=== PATIENT | male | born 2000 | race African-American/Black ===

== ENCOUNTER 2025-02-05 07:43 | Observation (INO) | payer OTHER, SELFPAY ==
[2025-02-05] MEDS ORDERED: HYDROMORPHONE HCL 1 MG/ML INJ ONE (08:34)
[2025-02-05] MEDS ORDERED: ONDANSETRON 4 MG/2 ML VIAL ONE ×2 (08:34→09:14)
--- NOTE | 2025-02-05 08:36 | RAD REPORT ---
EXAMINATION: ULTRASOUND DUPLEX OF SCROTUM AND TESTICLES CLINICAL INDICATION: Testicular pain TECHNIQUE: Duplex scan of the scrotal contents was performed including real-time color and spectral D oppler ultrasonography with arterial inflow and venous outflow. COMPARISON: No prior exam. FINDINGS: Right testicle measures 4 x 2.5 x 2.3 cm with a normal echotexture. Markedly diminished blood flow wi thin the right testicle. Left testicle measures 3.4 x 1.5 x 2.5 cm with a normal echotexture. Normal blood flow. Right epididymis normal in size and echotexture. Normal blood flow Left epididymis normal in size and echotexture. Normal blood flow IMPRESSION: Right testicular torsion Dr Jerome of emergency room notified at 833 AM February 05, 2025
--- NOTE | 2025-02-05 08:42 | ER ---
Nurse's Notes [facility] Name: Zuri Swain Age: 24 yrs Sex: Male : 2000 Arrival Date: 02/05/2025 Time: 07:43 Bed 6 Private MD: Diagnosis: Testicular torsion, right Presentation: 02/05 07:47 Chief complaint: EMS states: "toned out for right testicle pain that woke him up at mb9 0630. 20 g left AC and 100 mcg Fentanyl given IV.". Coronavirus screen: Vaccine status: Patient reports being unvaccinated. Ebola Screen: No symptoms or risks identified at this time. Initial Sepsis Screen: Does the patient meet any 2 criteria? No. Patient's initial sepsis screen is negative. Does the patient have a suspected source of infection? No. Patient's initial sepsis screen is negative. Risk Assessment: Do you want to hurt yourself or someone else? Patient reports no desire to harm self or others. Onset of symptoms was February 05, 2025. 07:47 Acuity: NEO 2 mb9 07:47 Method Of Arrival: EMS: [facility] mb9 Triage Assessment: 07:49 General: Appears uncomfortable, Behavior is cooperative. Pain: Complains of pain in mb9 pelvis. EENT: No signs and/or symptoms were reported regarding the EENT system. Neuro: Arita Agitation-Sedation Scale (RASS): 0 - Alert and Calm Level of Consciousness is awake, alert, obeys commands, Oriented to person, place, time, situation, Appropriate for age. Cardiovascular: Patient's skin is warm and dry. Respiratory: Airway is patent Respiratory effort is even, unlabored, Respiratory pattern is regular, symmetrical. GI: No signs and/or symptoms were reported involving the gastrointestinal system. : No signs and/or symptoms were reported regarding the genitourinary system. Derm: Skin is pink, warm \\T\\ dry. Musculoskeletal: Range of motion: intact in all extremities. Historical: - Allergies: 07:49 No Known Allergies; mb9 - Home Meds: 07:49 None [Active]; mb9 - PMHx: 07:49 Headaches; mb9 - PSHx: 07:49 None; mb9 - Immunization history:: Adult Immunizations up to date. - Infectious Disease History:: Denies. - Social history:: Smoking status: Patient denies any tobacco usage or history of. - Family history:: not pertinent. - Hospitalizations: : No recent hospitalization is reported. Screenin:51 [facility] ED Fall Risk Assessment (Adult) History of falling in the last 3 months, mb9 including since admission No falls in past 3 months (0 pts) Confusion or Disorientation No (0 pts) Intoxicated or Sedated No (0 pts) Impaired Gait No (0 pts) Mobility Assist Device Used No (0 pt) Altered Elimination No (0 pt) Score/Fall Risk Level 0 - 2 = Low Risk Oriented to surroundings, Maintained a safe environment, Educated pt \\T\\ family on fall prevention, incl call for assistance when getting out of bed. Abuse screen: Denies threats or abuse. Nutritional screening: No deficits noted. Tuberculosis screening: No symptoms or risk factors identified. Assessment: 07:50 Reassessment: see triage assessment. mb9 08:51 Reassessment: No changes from previously documented assessment. Patient and/or family mb9 updated on plan of care and expected duration. Pain level reassessed. Patient is alert, oriented x 3, equal unlabored respirations, skin warm/dry/pink. Vital Signs: 07:47 BP 148 / 96; Pulse 78; Resp 16; Temp 98; Pulse Ox 100% ; Weight 58.97 kg; Height 5 ft. mb9 11 in. ; Pain 10/10; 08:39 BP 131 / 91; Pulse 55; Resp 16; Pulse Ox 100% on R/A; mb9 08:51 BP 124 / 68; Pulse 74; Resp 16; Pulse Ox 99% on 2 lpm NC; mb9 07:47 Body Mass Index 18.13 (58.97 kg, 180.34 cm) mb9 07:47 Pain Scale: Adult mb9 ED Course: 07:45 Patient arrived in ED. bd 07:45 Finesse Jerome MD is Attending Physician. rn 07:47 Sonya Brunner RN is Primary Nurse. mb9 07:47 Arm band placed on. mb9 07:49 Triage completed. mb9 07:51 Bed in low position. Call light in reach. Side rails up X 1. Provided Education on: mb9 press call light if needing anything. Client placed on continuous cardiac and pulse oximetry monitoring. NIBP monitoring applied. 07:51 Maintain EMS IV. Dressing intact. Good blood return noted. Site clean \\T\\ dry. Gauge \\T\\ mb 9 site: 20 g left AC. 08:25 US Scrotum Testicles In Process Unspecified. EDMS 08:41 Darek Kenyon is Hospitalizing Provider. rn 08:52 No provider procedures requiring assistance completed. Patient admitted, IV remains in mb9 place. Administered Medications: 08:32 Drug: Ondansetron IVP 4 mg IVP once; over 2 minutes Route: IVP; Site: left antecubital; mb9 08:52 Follow up: Response: No adverse reaction mb9 08:39 Drug: HYDROmorphone IVP 1 mg IVP once Route: IVP; Site: left antecubital; mb9 08:52 Follow up: Response: No adverse reaction mb9 Medication: 07:51 VIS not applicable for this client. mb9 Outcome: 08:42 Decision to Hospitalize by Provider. rn 08:52 Admitted to OR accompanied by nurse, via stretcher, Report called to LETA Licona9 08:52 Condition: stable 08:52 Instructed on the need for admit, 08:52 Patient left the ED. mb9 Signatures: Dispatcher [employer] EDMS Azul Lucero Roman, MD MD rn Wilkerson, Mary Beth, RN RN mb9
--- NOTE | 2025-02-05 08:43 | EDPHYS ---
Physician Documentation [facility] Name: Zuri Swain Age: 24 yrs Sex: Male : 2000 Arrival Date: 02/05/2025 Time: 07:43 Bed 6 Private MD: ED Physician Finesse Jerome HPI: 02/05 08:38 This 24 yrs old Black Male presents to ER via EMS with complaints of Testicular Pain. rn 08:38 The patient presents with scrotal pain. Onset: The symptoms/episode began/occurred this rn morning, at 06:30. Patient reports sudden onset right testicular pain that started at 0 630 this morning. No trauma. No fever or chills.. Historical: - Allergies: 07:49 No Known Allergies; mb9 - Home Meds: 07:49 None [Active]; mb9 - PMHx: 07:49 Headaches; mb9 - PSHx: 07:49 None; mb9 - Immunization history:: Adult Immunizations up to date. - Infectious Disease History:: Denies. - Social history:: Smoking status: Patient denies any tobacco usage or history of. - Family history:: not pertinent. - Hospitalizations: : No recent hospitalization is reported. ROS: 08:38 Constitutional: Negative for fever, chills, and weight loss, Abdomen/GI: Positive for rn radiated pain from scrotum and nausea : Positive for right testicular pain Exam: 08:38 Constitutional: This is a well developed, well nourished patient who is awake, alert, rn Appears uncomfortable Abdomen/GI: Soft, nontender, no masses, no inguinal masses Male : Positive for right testicular swelling and tenderness. No discoloration noted Vital Signs: 07:47 BP 148 / 96; Pulse 78; Resp 16; Temp 98; Pulse Ox 100% ; Weight 58.97 kg; Height 5 ft. mb9 11 in. ; Pain 10/10; 08:39 BP 131 / 91; Pulse 55; Resp 16; Pulse Ox 100% on R/A; mb9 08:51 BP 124 / 68; Pulse 74; Resp 16; Pulse Ox 99% on 2 lpm NC; mb9 07:47 Body Mass Index 18.13 (58.97 kg, 180.34 cm) mb9 07:47 Pain Scale: Adult mb9 MDM: 07:45 Medical Screening Exam initiated rn 08:35 ED course: Discussed case with Dr. Tellez, notified of testicular torsion, will come rn and see patient.. 08:38 Differential diagnosis: nonspecific abdominal pain, Epididymitis, testicular torsion, rn orchitis. Data reviewed: vital signs, nurses notes, radiologic studies, ultrasound, and as a result, I will admit patient. Consideration of Admission/Observation Patient was admitted/placed on observation. Escalation of care including admission/observation considered. Counseling: I had a detailed discussion with the patient and/or guardian regarding the historical points, exam findings, and any diagnostic results supporting the discharge/admit diagnosis, radiology results, the need for further work-up and treatment in the hospital. 08:45 ED course: Patient still writhing in pain. Fentanyl was administered by EMS with rn minimal improvement. 1 mg Dilaudid ordered for pain control to bridge patient to surgery.. 02/05 08:33 Order name: CBC with Diff rn 02/05 08:33 Order name: Basic Metabolic Panel rn 02/05 08:33 Order name: Protime (+inr) rn 02/05 08:33 Order name: Ptt, Activated rn 02/05 07:45 Order name: US Scrotum Testicles; Complete Time: 08:37 rn 02/05 08:33 Order name: IV Start; Complete Time: 08:39 rn Administered Medications: 08:32 Drug: Ondansetron IVP 4 mg IVP once; over 2 minutes Route: IVP; Site: left antecubital; mb9 08:52 Follow up: Response: No adverse reaction mb9 08:39 Drug: HYDROmorphone IVP 1 mg IVP once Route: IVP; Site: left antecubital; mb9 08:52 Follow up: Response: No adverse reaction mb9 Disposition Summary: 02/05/25 08:42 Hospitalization Ordered Notes: Hospitalization Status: Observation rn Provider: Darek Kenyon [facility]n [facility]n Condition: Stable rn Problem: new rn Symptoms: have improved rn Bed/Room Type: Standard rn Room Assignment: rn Diagnosis - Testicular torsion, right rn Forms: - Medication Reconciliation Form rn - SBAR form rn - Leadership Thank You Letter sourcing internship time excluding procedures: 08:38 Critical care time: Bedside Care: 25 minutes, Consultation: 10 minutes. Total time: 35 rn minutes Signatures: Dispatcher [employer] EDMS Finesse Jerome MD MD rn Wilkerson, LETA Camarena RN9 Corrections: (The following items were deleted from the chart) 07:46 07:46 Scrotum Testicles+US.RAD.BRZ ordered. EDMS EDMS 08:34 08:33 CBC+H.LAB.BRZ ordered. EDMS EDMS 08:34 08:33 BASIC METABOLIC PANEL+C.LAB.BRZ ordered. EDMS EDMS 08:34 08:33 PROTIME (+INR)+COAG.LAB.BRZ ordered. EDMS EDMS 08:34 08:33 PTT, ACTIVATED+COAG.LAB.BRZ ordered. EDMS EDMS
[2025-02-05 08:45] LABS: Absolute Lymphocytes (CBC) 1.7 K/uL (0.7-4.9); Absolute Monocytes 0.7 K/uL (0.1-1.3); Basophils % 0.3 % (0-1.3); Eosinophils % 0.4 % (0-4.4); Hematocrit 38.8 % (39.6-49.0); Hemoglobin 13.4 g/dL (13.6-17.9); Lymphocytes % 14.8 % (15.3-44.8); MCH 30.3 pg (27.0-35.0); MCHC 34.4 g/dL (32.0-36.0); MCV 88.1 fL (80-100); MPV 8.5 fL (7.6-11.3); Monocytes % 6.2 % (3.3-12.3); Neutrophils % 78.3 % (41.7-73.7); Platelets 172 thou/uL (152-406); RBC Red Blood Cell Count 4.41 M/uL (4.33-5.43); Red Cell Distribution Width 13.7 % (12.1-15.2)
[2025-02-05 08:53] LABS: PT Prothrombin Time 11.9 SECONDS (10-13.0); PTT, Activated Partial Thromb 26.8 SECONDS (27.2-37.4); Protime INR 1.05
[2025-02-05] MEDS ORDERED: Ringers Lactate 1,000 ML IV ONE (08:59)
[2025-02-05 09:07] LABS: Anion Gap 12.8 mEq/L (5.0-15.0); Potassium 2.8 mEq/L (3.5-5.1)
[2025-02-05] MEDS ORDERED: SUCCINYLCHOLINE 20 MG/ML (10 ML) IV ONE (09:10)
[2025-02-05] MEDS: FAMOTIDINE 20 MG/2 ML VIAL IV ONE (09:12)
[2025-02-05] MEDS ORDERED: KETOROLAC 30 MG/ML INJ ONE (09:14)
[2025-02-05] MEDS ORDERED: LIDOCAINE 2% MPF 5 ML VIAL ONE (09:14)
[2025-02-05] MEDS ORDERED: dexAMETHasone 10 MG/ML VIAL ONE (09:14)
[2025-02-05] MEDS ORDERED: MIDAZOLAM HCL 2 MG/2 ML INJ ONE (09:15)
[2025-02-05] MEDS ORDERED: ROCURONIUM 50 MG/5 ML VIAL IV ONE (09:15)
[2025-02-05] MEDS ORDERED: propofoL 200 MG/20 ML VIAL IV ONE (09:15)
[2025-02-05] MEDS ORDERED: FENTANYL CITR 100 MCG/2 ML ONE (09:15)
--- NOTE | 2025-02-05 09:18 | P.CNS ---
Date of Consult: 02/05/25 Reason for Consult: Testicular torsion Requesting Physician: Finesse Jerome Chief Complaint: Right testicular pain History of Present Illness: 24-year-old gentleman presented via EMS this morning to the emergency department having been awakened at around 6 this morning with right testicular pain. The pain was severe and caused some lower abdominal pain but no associated nausea vomiting, fever or chills. No associated trauma or other event was present. They called the ambulance and he was transported to the emergency department at around 630 this morning. The emergency department completed an ultrasound at around 808 this morning, and consultation was requested of me via phone call at 8:34 AM. I notified the OR immediately after the phone call at around 8:36 AM. Patient was seen in the emergency department at around 8:45 AM having just been administered a dose of the Dilaudid. Past medical and surgical history: None as above No known drug allergies Family history: No urologic malignancy Social history: Smokes marijuana regularly every other day Examination: Well-appearing and in no acute distress Alert, awake, oriented x 3 No dyspnea or sign of respiratory distress Abdomen soft, nontender, nondistended Phallus circumcised without lesion. Right testis elevated in the right hemiscrotum and tender to mild palpation despite patient having just been administered 1 mg Dilaudid IV. Left testis otherwise palpably normal. Scrotum normal. No lower extremity edema or tenderness lying in a stretcher with legs apart to avoid scrotal contact. Scrotal ultrasound completed: FINDINGS: Right testicle measures 4 x 2.5 x 2.3 cm with a normal echotexture. Markedly diminished blood flow within the right testicle. Left testicle measures 3.4 x 1.5 x 2.5 cm with a normal echotexture. Normal blood flow. Right epididymis normal in size and echotexture. Normal blood flow Left epididymis normal in size and echotexture. Normal blood flow IMPRESSION: Right testicular torsion Dr Jerome of emergency room notified at 833 AM February 05, 2025 02/05/2025 WBC 11.5, hemoglobin 13.4, platelets 172, creatinine 1.11, potassium 2.8, INR 1.05 Assessment and recommendation: 24-year-old healthy gentleman with right testicular torsion. -I counseled the patient on the need for urgent operative management to include attempted right testicular detorsion, possible orchiectomy, and if successful, we would perform right orchiopexy and left orchiopexy to prevent a torsion event on the opposite side. I explained the need for scrotal incision in order to complete this operative excursion. - Consent completed. Patient allowed to contact his family/parents and inform them before going back. Allergies No Known Allergies Allergy (Unverified 06/11/16 23:56) - Past Medical/Surgical History Diabetic: No Past Medical History: Patient denies medical history Physical Examination Temp Pulse Resp BP Pulse Ox 98 F 74 16 124/68 02/05/25 07:47 02/05/25 08:51 02/05/25 08:51 02/05/25 08:51 Laboratory Data (last 24 hrs) 02/05/25 02/05/25 02/05/25 08:38 08:38 08:38 WBC 11.50 H Hgb 13.4 L Hct 38.8 L Plt Count 172 PT 11.9 INR 1.05 APTT 26.8 L Sodium 138 Potassium 2.8 L BUN 13 Creatinine 1.11 Glucose 136 H - Problems (1) Right testicular torsion Current Visit: Yes Status: Acute Conclusions/Impression: see A&P in HPI Critical Care: Yes Time Spent Managing Pts care (In Minutes): 25
[2025-02-05] MEDS: CEFAZOLIN SODIUM 1 GM/VIAL ONE (09:23)
[2025-02-05] MEDS ORDERED: KCL 20 MEQ/100 mL IVPB 100 ML IV ONE (09:30)
[2025-02-05] MEDS ORDERED: NS 0.9% VIAL 20 ML ONE ×2 (09:36→09:47)
[2025-02-05] MEDS ORDERED: GLYCOPYRROLATE 0.2 MG/ML SYR ONE (10:17)
[2025-02-05] MEDS ORDERED: NEOSTIGMINE 1 MG/ML -10 ML VIAL ONE (10:17)
[2025-02-05] MEDS: BACITRACIN OINTMENT 14 GM TUBE TOP ONE (10:25)
[2025-02-05 10:43] VITALS: O2SAT 100
[2025-02-05] MEDS ORDERED: HYDROCODONE/APAP 5/325 MG TAB PO PRN (11:14)
[2025-02-05 11:51] VITALS: BP 113/62; TEMP 98.5
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
--- NOTE | 2025-02-05 14:24 | P.CNS ---
Date of Consult: 02/05/25 Reason for Consult: Medical management Requesting Physician: Santhosh Tellez Chief Complaint: Right testicular pain History of Present Illness: Pt is a 24yo who was admitted Allergies No Known Allergies Allergy (Unverified 06/11/16 23:56) Home Medications: Hydrocodone 5/APAP 325 [[place] 5/325*] 1 tab PO Q4H PRN #20 tab 02/05/25 Hydrocodone 5/APAP 325 [[place] 5/325] 1 tab PO Q4H PRN #20 tab 02/05/25 - Past Medical/Surgical History Diabetic: No Review of Systems 10-point ROS is otherwise unremarkable Physical Examination Temp Pulse Resp BP Pulse Ox 98.5 F 83 18 113/62 02/05/25 12:29 02/05/25 12:29 02/05/25 12:29 02/05/25 12:29 General: Alert, In no apparent distress HEENT: Atraumatic, PERRLA, Mucous membr. moist/pink, EOMI, Sclerae nonicteric Neck: Supple, 2+ carotid pulse no bruit, No LAD, Without JVD or thyroid abnormality Respiratory: Clear to auscultation bilaterally, Normal air movement Cardiovascular: Regular rate/rhythm, Normal S1 S2 Gastrointestinal: Normal bowel sounds, No tenderness Musculoskeletal: No tenderness Integumentary: No rashes Neurological: Normal gait, Normal speech, Normal tone, Normal affect Lymphatics: No axilla or inguinal lymphadenopathy Laboratory Data (last 24 hrs) 02/05/25 02/05/25 02/05/25 08:38 08:38 08:38 WBC 11.50 H Hgb 13.4 L Hct 38.8 L Plt Count 172 PT 11.9 INR 1.05 APTT 26.8 L Sodium 138 Potassium 2.8 L BUN 13 Creatinine 1.11 Glucose 136 H - Problems (1) Right testicular torsion Status: Acute Conclusions/ Impression: PLAN: 1. Continue
== END 2025-02-05 12:29 | disposition home or self-care (01) ==
LOC: ER 07:43 → DSO 11:17
PROVIDERS: ADMIT Urology; ATTEND Urology
PROC: 0VSC0ZZ Reposition Bilateral Testes, Open Approach (ICD-10-PCS; principal; 2025-02-05 15:30)
DX: N44.00 Torsion of testis, unspecified (principal); N50.811 Right testicular pain; R10.30 Lower abdominal pain, unspecified
CPT/HCPCS: 36415; 76870; 80048; 82947; 85025; 85610; 85730; A4216; J0690; J1100; J1171; J2003; J2250; J2405; J2704; J2710; J3010; J3480; J7120

== ENCOUNTER 2025-07-23 17:40 | Emergency (ER) | payer SELFPAY ==
[2025-07-23] MEDS ORDERED: MORPHINE 2 MG/ML SYR ONE (18:33)
[2025-07-23] MEDS ORDERED: FAMOTIDINE 20 MG/2 ML VIAL IV ONE (18:34)
[2025-07-23] MEDS ORDERED: ONDANSETRON 4 MG/2 ML VIAL ONE (18:34)
[2025-07-23] MEDS ORDERED: NA CHLORIDE 0.9% 1,000 ML ONE (18:34)
[2025-07-23 18:38] LABS: Absolute Lymphocytes (CBC) 0.3 K/uL (0.7-4.9); Hematocrit 45.7 % (39.6-49.0); Hemoglobin 15.4 g/dL (13.6-17.9); MCH 30.2 pg (27.0-35.0); MCHC 33.7 g/dL (32.0-36.0); MCV 89.5 fL (80-100); MPV 8.9 fL (7.6-11.3); Nucleated RBC Absolute Count 0.0 (0-0); Nucleated Red Blood Cells % 0.0 % (0-0); RBC Red Blood Cell Count 5.11 M/uL (4.33-5.43); White Blood Count 9.20 thou/uL (4.3-10.9)
[2025-07-23 19:01] LABS: ALT/SGPT 33.0 U/L (16-61); AST/SGOT 22.0 U/L (15-37); Albumin 5.3 g/dL (3.4-5.0); Albumin/Globulin Ratio 1.4 (1.1-1.8); Alkaline Phosphatase 52.0 U/L (45-117); Anion Gap 11.8 mEq/L (5.0-15.0); BUN Blood Urea Nitrogen 23.0 mg/dL (7-18); Globulin 3.8 g/dL (2.3-3.5); Glucose Level 121.0 mg/dL (74-106); Lipase 11.0 U/L (13-75); Potassium 3.8 mEq/L (3.5-5.1)
--- NOTE | 2025-07-23 19:43 | RAD REPORT ---
EXAMINATION: CT ABDOMEN AND PELVIS WITH CONTRAST CLINICAL INDICATION: ABD PAIN TECHNIQUE: CT abdomen and pelvis was performed, after the administration of IV contrast, as per [facility] protocol. Axial, sagittal and coronal reconstructions were obtained. One or more of the following dose reduction techniques were used: Automated exposure control, adjustment of the mA and k V according to patient size, and iterative reconstruction. Unless otherwise specified, incidental findings do not require dedicated imaging follow-up. COMPARISON: No prior exam. FINDINGS: LOWER CHEST: The visualized lung bases are clear. LIVER: Normal in size and contour. No focal lesion. Grossly unremarkable gallbladder. SPLEEN: Normal size. No focal lesion. PANCREAS: No mass, ductal dilation, or maggie-pancreatic fluid. ADRENALS: Normal; no mass. KIDNEYS: Normal size and contour. No hydronephrosis. GASTROINTESTINAL TRACT: No evidence of free air, significant intra-abdominal free fluid, bowel obstru ction or abscess. APPENDIX: Normal appendix. LYMPH NODES: No lymphadenopathy. MUSCULOSKELETAL: No acute or suspicious osseous abnormality. ADDITIONAL FINDINGS: None. IMPRESSION: No acute or concerning abnormalities seen in the abdomen or pelvis.
[2025-07-23 20:11] LABS: Blood Morphology Comment NOT SEEN (NOT SEEN); White Blood Cell Scan OK (OK)
--- NOTE | 2025-07-23 20:20 | EDPHYS ---
Physician Documentation [facility] Name: Zuri Swain Age: 25 yrs Sex: Male : 2000 Arrival Date: 07/23/2025 Time: 17:40 Bed 10 Private MD: ED Physician Hernandez Ledesma HPI: 07/23 17:45 This 25 yrs old Black Male presents to ER via Unassigned with complaints of Abdominal ms3 pain. 17:45 25-year-old male with no past medical history presents to the emergency department for ms3 abdominal pain that began yesterday. Patient states pain is generalized and rated an 8/10. Patient denies radiation of the pain.. Patient endorses nausea, vomiting, diarrhea. Patient states he last ate last night. Patient states the pain is worse with movement. Historical: - Allergies: 17:58 No Known Allergies; jb4 - PMHx: 17:58 Headaches; jb4 - Immunization history:: Adult Immunizations up to date. - Infectious Disease History:: Denies. - Social history:: Smoking status: Patient denies any tobacco usage or history of. Patient uses street drugs, marijuana. ROS: 17:45 Constitutional: Negative for fever, and chills. Cardiovascular: Negative for chest ms3 pain, and palpitations. Respiratory: Negative for shortness of breath, cough, wheezing, and pleuritic chest pain, 17:45 MS/Extremity: Negative for injury and deformity, Skin: Negative for injury, rash, and discoloration, 17:45 Abdomen/GI: Positive for abdominal pain, nausea and vomiting, Exam: 17:45 Constitutional: This is a well developed, well nourished patient who is awake, alert, ms3 and in no acute distress. Cardiovascular: Regular rate and rhythm with a normal S1 and S2. No gallops, murmurs, or rubs. Normal PMI, no JVD. No pulse deficits. Respiratory: Lungs have equal breath sounds bilaterally, clear to auscultation and percussion. No rales, rhonchi or wheezes noted. No increased work of breathing, no retractions or nasal flaring. 17:45 Abdomen/GI: Inspection: abdomen appears normal, Bowel sounds: normal, Palpation: moderate abdominal tenderness, in the left upper quadrant and left lower quadrant, Vital Signs: 17:57 BP 121 / 90; Pulse 67; Resp 16; Temp 97.8(O); Pulse Ox 100% on R/A; Weight 45.36 kg jb4 (R); Height 5 ft. 9 in. ; Pain 10/10; 18:46 BP 97 / 70; Pulse 65; Resp 16; Pulse Ox 99% on R/A; jb4 21:00 BP 97 / 75; Pulse 78; Resp 16; Pulse Ox 99% on R/A; jb4 17:57 Body Mass Index 14.77 (45.36 kg, 175.26 cm) jb4 17:57 Pain Scale: Adult jb4 MDM: 17:45 Medical Screening Exam initiated ms3 17:45 Differential diagnosis: bowel obstruction, gastritis, non-specific abd pain. ms3 20:25 Data reviewed: vital signs, nurses notes, lab test result(s), radiologic studies, and ms3 as a result, I will discharge patient. I considered the following discharge prescriptions or medication management in the emergency department Medications were administered in the Emergency Department. See MAR. Counseling: I had a detailed discussion with the patient and/or guardian regarding the historical points, exam findings, and any diagnostic results supporting the discharge/admit diagnosis, lab results, radiology results, the need for outpatient follow up, to return to the emergency department if symptoms worsen or persist or if there are any questions or concerns that arise at home. Special discussion: I discussed with the patient/guardian in detail that at this point there is no indication for admission to the hospital. It is understood, however, that if the symptoms persist or worsen the patient needs to return immediately for re-evaluation. ED course: Discussed elevated bilirubin with patient. CT abdomen pelvis without significant abnormalities. Patient afebrile. Patient states his symptoms have improved, patient is alert and oriented x 4, no apparent distress, nontoxic-appearing, speaking full sentences. Patient to follow-up with Dr. Sandoval in 2 to 3 days. All questions were answered. Return precautions discussed include worsening symptoms, or any other concerns. 07/23 17:45 Order name: CBC with Diff; Complete Time: 20:15 ms3 07/23 17:45 Order name: CMP; Complete Time: 19:20 ms3 07/23 17:45 Order name: Lipase; Complete Time: 19:20 ms3 07/23 18:43 Order name: CBC Smear Scan; Complete Time: 20:15 EDMS 07/23 17:45 Order name: CT Abd/Pelvis - IV Contrast Only; Complete Time: 20:08 ms3 07/23 17:45 Order name: IV Saline Lock; Complete Time: 18:41 ms3 07/23 17:45 Order name: Labs collected and sent; Complete Time: 18:41 ms3 Administered Medications: 18:41 Drug: Famotidine IVP 20 mg IVP once; dilute with 10 mL 0.9% NaCl; give over 2 minutes jb4 Route: IVP; Site: right antecubital; 21:01 Follow up: Response: No adverse reaction; Marked relief of symptoms jb4 18:41 Drug: NS 0.9% IV 1000 ml IV at 1 bolus Per protocol; to be given as a bolus over 60 jb4 minutes Route: IV; Rate: 1 bolus; Site: right antecubital; 20:00 Follow up: Response: No adverse reaction; IV Status: Completed infusion; IV Intake: jb4 1000ml 18:42 Drug: Ondansetron IVP 4 mg IVP once; over 2 minutes Route: IVP; Site: right antecubital;jb4 21:01 Follow up: Response: No adverse reaction; Marked relief of symptoms jb4 18:42 Drug: morphine IVP or IV 4 mg IVP once over 4 mins Route: IVP; Infused Over: 4 mins; jb4 Site: right antecubital; 19:27 Drug: morphine IVP or IV 4 mg IVP once over 4 mins Route: IVP; Infused Over: 4 mins; jb4 Site: right antecubital; 21:01 Follow up: Response: No adverse reaction; Marked relief of symptoms; Pain is decreased jb4 Disposition Summary: 07/23/25 20:19 Discharge Ordered Notes: Location: Home ms3 Condition: Stable ms3 Diagnosis - Abdominal pain, unspecified ms3 - Nausea with vomiting, unspecified ms3 - Diarrhea, unspecified ms3 Followup: ms3 - With: Nghia Sandoval, DO - When: 2 - 3 days - Reason: Re-evaluation by your physician Discharge Instructions: - Discharge Summary Sheet ms3 - Abdominal Pain, Adult ms3 - Diarrhea, Adult ms3 - Nausea and Vomiting, Adult ms3 Forms: - Medication Reconciliation Form ms3 - Antibiotic Education ms3 - Prescription Opioid Use ms3 - Patient Portal Instructions ms3 - Leadership Thank You Letter ms3 Prescriptions: - ondansetron 4 mg Oral Tablet,disintegrating - take 1 tablet ORAL route every 8 hours as needed for nausea and vomiting; 15 ms3 tablet; Refills: 0, Product Selection Permitted - dicyclomine 10 mg Oral capsule - take 1 capsule ORAL route 3 times per day; 15 capsule; Refills: 0, Product ms3 Selection Permitted Signatures: Dispatcher [employer] EDMS Ken Mathis RN RN jb4 Hernandez Ledesma DO DO ms3 Corrections: (The following items were deleted from the chart) 17:46 17:45 CBC+H.LAB.BRZ ordered. EDMS EDMS 17:46 17:45 COMPREHENSIVE METABOLIC PANEL+C.LAB.BRZ ordered. EDMS EDMS 17:46 17:45 LIPASE+C.LAB.BRZ ordered. EDMS EDMS
--- NOTE | 2025-07-23 20:20 | ER ---
Nurse's Notes [facility] Name: Zuri Swain Age: 25 yrs Sex: Male : 2000 Arrival Date: 07/23/2025 Time: 17:40 Bed 10 Private MD: Diagnosis: Abdominal pain, unspecified;Nausea with vomiting, unspecified;Diarrhea, unspecified Presentation: 07/23 17:57 Chief complaint: EMS states: Pt reports N/V/D, with upper and lower abdominal pain that jb4 all started yesterday. Coronavirus screen: At this time, the client does not indicate any symptoms associated with coronavirus-19. Ebola Screen: No symptoms or risks identified at this time. Initial Sepsis Screen: Does the patient meet any 2 criteria? No. Patient's initial sepsis screen is negative. Does the patient have a suspected source of infection? No. Patient's initial sepsis screen is negative. Risk Assessment: Do you want to hurt yourself or someone else? Patient reports no desire to harm self or others. Onset of symptoms was July 22, 2025. Transition of care: patient was not received from another setting of care. 17:57 Method Of Arrival: EMS: [facility] jb4 17:57 Acuity: NEO 3 jb4 Historical: - Allergies: 17:58 No Known Allergies; jb4 - PMHx: 17:58 Headaches; jb4 - Immunization history:: Adult Immunizations up to date. - Infectious Disease History:: Denies. - Social history:: Smoking status: Patient denies any tobacco usage or history of. Patient uses street drugs, marijuana. Screenin:58 [facility] ED Fall Risk Assessment (Adult) History of falling in the last 3 months, jb4 including since admission No falls in past 3 months (0 pts) Confusion or Disorientation No (0 pts) Intoxicated or Sedated No (0 pts) Impaired Gait No (0 pts) Mobility Assist Device Used No (0 pt) Altered Elimination No (0 pt) Score/Fall Risk Level 0 - 2 = Low Risk Oriented to surroundings, Maintained a safe environment. Abuse screen: Denies threats or abuse. Nutritional screening: No deficits noted. Tuberculosis screening: No symptoms or risk factors identified. Assessment: 17:58 General: Appears in no apparent distress. uncomfortable, Behavior is calm, cooperative, jb4 appropriate for age. Pain: Complains of pain in abdomen Pain does not radiate. Pain currently is 10 out of 10 on a pain scale. Quality of pain is described as stabbing, Pain began 1 day ago. Is continuous. Neuro: Level of Consciousness is awake, alert, obeys commands, Oriented to person, place, time, situation. Cardiovascular: Patient's skin is warm and dry. Respiratory: Airway is patent Respiratory effort is even, unlabored, Respiratory pattern is regular, symmetrical. GI: Abdomen is flat, non-distended, Reports lower abdominal pain, upper abdominal pain, diarrhea, nausea, vomiting. Derm: Skin is intact, Skin is dry, Skin is normal, Skin temperature is warm. Musculoskeletal: Circulation, motion, and sensation intact. Range of motion: intact in all extremities. 18:46 Reassessment: Patient appears in no apparent distress at this time. Patient and/or jb4 family updated on plan of care and expected duration. Pain level reassessed. Patient is alert, oriented x 3, equal unlabored respirations, skin warm/dry/pink. 21:00 Reassessment: Patient appears in no apparent distress at this time. Patient and/or jb4 family updated on plan of care and expected duration. Pain level reassessed. Patient is alert, oriented x 3, equal unlabored respirations, skin warm/dry/pink. Vital Signs: 17:57 BP 121 / 90; Pulse 67; Resp 16; Temp 97.8(O); Pulse Ox 100% on R/A; Weight 45.36 kg jb4 (R); Height 5 ft. 9 in. ; Pain 10/10; 18:46 BP 97 / 70; Pulse 65; Resp 16; Pulse Ox 99% on R/A; jb4 21:00 BP 97 / 75; Pulse 78; Resp 16; Pulse Ox 99% on R/A; jb4 17:57 Body Mass Index 14.77 (45.36 kg, 175.26 cm) jb4 17:57 Pain Scale: Adult jb4 ED Course: 17:44 Patient arrived in ED. ms3 17:44 Hernandez Ledesma DO is Attending Physician. ms3 17:58 Triage completed. jb4 17:58 Arm band placed on right wrist. jb4 17:58 Patient has correct armband on for positive identification. Bed in low position. Call jb4 light in reach. Side rails up X 1. Provided Education on: plan of care. 18:30 Inserted saline lock: 20 gauge in right antecubital area, using aseptic technique. jb4 Blood collected. 18:30 No provider procedures requiring assistance completed. jb4 18:41 CBC with Diff Sent. jb4 18:41 CMP Sent. jb4 18:41 Lipase Sent. jb4 18:46 Ken Mathis, RN is Primary Nurse. jb4 19:31 CT Abd/Pelvis - IV Contrast Only In Process Unspecified. EDMS 20:18 Nghia Sandoval DO is Referral Physician. ms3 21:00 IV discontinued, intact, bleeding controlled, No redness/swelling at site. Pressure jb4 dressing applied. Administered Medications: 18:41 Drug: Famotidine IVP 20 mg IVP once; dilute with 10 mL 0.9% NaCl; give over 2 minutes jb4 Route: IVP; Site: right antecubital; 21:01 Follow up: Response: No adverse reaction; Marked relief of symptoms jb4 18:41 Drug: NS 0.9% IV 1000 ml IV at 1 bolus Per protocol; to be given as a bolus over 60 jb4 minutes Route: IV; Rate: 1 bolus; Site: right antecubital; 20:00 Follow up: Response: No adverse reaction; IV Status: Completed infusion; IV Intake: jb4 1000ml 18:42 Drug: Ondansetron IVP 4 mg IVP once; over 2 minutes Route: IVP; Site: right antecubital;jb4 21:01 Follow up: Response: No adverse reaction; Marked relief of symptoms jb4 18:42 Drug: morphine IVP or IV 4 mg IVP once over 4 mins Route: IVP; Infused Over: 4 mins; jb4 Site: right antecubital; 19:27 Drug: morphine IVP or IV 4 mg IVP once over 4 mins Route: IVP; Infused Over: 4 mins; jb4 Site: right antecubital; 21:01 Follow up: Response: No adverse reaction; Marked relief of symptoms; Pain is decreased jb4 Medication: 17:58 VIS not applicable for this client. jb4 Intake: 20:00 IV: 1000ml; Total: 1000ml. jb4 Outcome: 20:19 Discharge ordered by . ms3 21:00 Discharged to home ambulatory, with family, jb4 21:00 Condition: stable 21:00 Discharge instructions given to patient, Instructed on discharge instructions, follow up and referral plans. no drinking with medication, medication usage, Demonstrated understanding of instructions, follow-up care, medications, Prescriptions given X 2, 21:02 Patient left the ED. jb4 Signatures: Dispatcher [employer] EDKen Boone RN RN jb4 Hernandez Ledesma DO DO ms3
[2025-07-24 03:59] VITALS: TEMP 97.8
[2025-07-24 04:05] VITALS: O2SAT 99
[2025-07-24 04:07] VITALS: BP 97/75
== END 2025-07-23 21:02 | disposition home or self-care (01) ==
LOC: ER 17:40
DX: R10.84 Generalized abdominal pain (principal); R11.2 Nausea with vomiting, unspecified; R19.7 Diarrhea, unspecified
CPT/HCPCS: 36415; 74177; 80053; 83690; 85025; 96361; 96374; 96375; 99284; J2270; J2405; J7030